=== PATIENT | female | born 1950 | race Caucasian/White ===

== ENCOUNTER 2020-07-02 08:37 | Outpatient (CLI) | payer MEDICARE, SELFPAY ==
--- NOTE | ~2020-07-02 | MM_ITS ---
EXAMINATION: MM screening [facility] BI w [facility] HISTORY: Screening TECHNIQUE: Craniocaudal and mediolateral oblique 3-D tomosynthesis images were obtained and synthetic 2-D images were generated. CAD analysis was submitted and interpreted. COMPARISON: Comparison to multiple prior studies sequentially, with oldest reviewed study dated 09/22. BREAST PARENCHYMAL COMPOSITION: There are scattered areas of fibroglandular density. FINDINGS: There is no evidence of suspicious mass, calcification, or architectural distortion to sugg est malignancy in either breast. There has been no suspicious interval change. IMPRESSION: 1. No mammographic evidence of malignancy. 2. Recommend routine screening mammography in one year. BI-RADS Category 1: Negative Reviewed, dictated and finalized at location A.
== END 2020-07-02 08:38 | disposition home or self-care (01) ==
LOC: ANHIMG 08:40
PROVIDERS: PCP Internal Medicine; Visit Provider Internal Medicine
DX: Z12.31 Encounter for screening mammogram for malignant neoplasm of breast (principal)
CPT/HCPCS: 77063; 77067

== ENCOUNTER 2021-12-03 19:02 | Emergency (ER) | payer MEDICARE, SELFPAY ==
[2021-12-03 19:43] VITALS: BP 171/94; PULSE 73; RESP 18; TEMP 36.7; O2SAT 100
--- NOTE | 2021-12-03 20:06 | ED.GENADULT ---
HPI - General Adult General Chief complaint: Nausea/Vomiting/Diarrhea Stated complaint: vomiting Time Seen by Provider: 12/03/21 19:51 History of Present Illness HPI narrative: 71-year-old female presented to the emergency department for evaluation of nausea vomiting and diarrhea. Patient states that she was due to COVID. Patient's was symptomatic for COVID on Tuesday and tested positive this past Tuesday. Patient states that he is now improved. Patient also began having some symptoms on Tuesday involving excessive tiredness. Patient's over the course of the day she has been unable to keep anything down due to persistent nausea and vomiting. Patient denies any any chest pain or shortness of breath. Patient denies any associate abdominal pain or pain with urination. Patient has a prior history of hypertension, rheumatoid with redness, esophageal reflux disease and hypothyroidism. Patient did receive the COVID-vaccine and booster. Related Data Home Medications Medication Instructions Recorded Confirmed aspirin 81 mg tablet,delayed 81 mg PO DAILY 03/19/19 06/30/21 release (Adult Low Dose Aspirin) cholecalciferol (vitamin D3) 100 4,000 unit PO DAILY 03/19/19 06/30/21 mcg (4,000 unit) capsule (Vitamin D3) calcium carbonate 500 mg calcium 500 mg PO DAILY 03/20/19 06/30/21 (1,250 mg) tablet magnesium 200 mg tablet 200 mg PO DAILY 03/20/19 06/30/21 Purevision PO 01/16/21 06/30/21 nutritional supplement-fiber oral ea PO 01/16/21 06/30/21 liquid Allergies Allergy/AdvReac Type Severity Reaction Status Date / Time shellfish derived Allergy Severe Swelling Verified 06/30/21 14:58 of Lip/Tongue/Throat Sulfa (Sulfonamide Allergy Mild Rash Verified 06/30/21 14:58 Antibiotics) Review of Systems Review of Systems: CONSTITUTIONAL: Denies fever, chills, or sweats. EYES: Denies visual changes, redness, or discharge. ENT: Denies rhinorrhea, congestion, sore throat, or otalgia. CARDIOVASCULAR: Denies chest pain, palpitations, or edema. RESPIRATORY: Denies cough or dyspnea. GASTROINTESTINAL: See HPI GENITOURINARY: Denies dysuria or hematuria. SKIN: Denies rash or itching. MUSCULOSKELETAL: Denies back pain, joint pain, or myalgia. NEUROLOGIC: Does report headache but denies any associated numbness or weakness PMFSH Social History Social History Second hand tobacco smoke exposure: No Alcohol intake: current Exam Narrative: APPEARANCE: Well appearing, no pain, no distress, well-nourished. HEAD: normocephalic, atraumatic. EYES: PERRLA/EOMI, conjunctivae clear. NOSE: Normal no drainage THROAT: Pharynx clear, no exudate. NECK: Supple. No adenopathy, no masses. RESPIRATORY: Airway patent, respirations nonlabored. Clear to auscultation bilaterally, no rales, rhonchi, wheezing. CARDIOVASCULAR: Regular rate and rhythm without murmurs rubs or gallops. ABDOMINAL: Soft, nontender, nondistended, normal bowel sounds MUSCULOSKELETAL: Moves all extremities. Strength/ROM intact, No edema, No calf tenderness. NEURO: Alert. Cranial nerves II through XII intact. Grossly intact SKIN: Warm, dry. Normal Color Course Course Emergency Course: Patient did feel improved with treatment. Patient was updated on the positive results of her COVID test. Patient's CMP is within normal limits. Patient was tolerating p.o. Patient was provided Zofran for home and encouraged of close follow-up with her primary care physician. Vital Signs Vital signs: Vital Signs Temperature 98.1 F 12/03/21 19:43 Pulse Rate 73 12/03/21 19:43 Respiratory Rate 18 12/03/21 19:43 Blood Pressure 171/94 H 12/03/21 19:43 Pulse Oximetry 100 12/03/21 19:43 Oxygen Delivery Room Air 12/03/21 19:43 Temperature 98.1 F 12/03/21 19:43 Pulse Rate 67 12/03/21 21:50 Respiratory Rate 18 12/03/21 21:50 Blood Pressure 130/80 12/03/21 21:50 Pulse Oximetry 98 1
[2021-12-03] MEDS: ONDANSETRON INJ 4 MG/2 ML VIAL IV PUSH (20:23)
[2021-12-03] MEDS: SODIUM CHLORIDE 0.9% IV 1,000 ML 999 ML IV CONT (20:23)
[2021-12-03] MEDS: KETOROLAC 15 MG/ML VIAL (*BKC) IV PUSH (20:23)
[2021-12-03 20:36] LABS: Basophils Percent Auto 0.7 % (0.2-1.2); Eosinophils Percent Auto 0.2 % (0-4.4); Hematocrit 41.7 % (37.0-47.0); Hemoglobin 14.3 g/dL (12.0-15.0); Immature Granulocyte Absolute 0.02 K/mm3 (0.00-0.031); Immature Granulocyte Percent A 0.4 % (0-0.5); Lymphocytes Absolute Auto 0.89 K/mm3 (0.9-3.2); Lymphocytes Percent Auto 19.9 % (18.3-44.2); Mean Corpuscular HGB Conc 34.3 g/dl (32-36); Mean Corpuscular Hemoglobin 31.4 pg (26-34); Mean Corpuscular Volume 91.4 fl (80-100); Monocytes Absolute Auto 0.6 K/mm3 (0.1-0.6); Monocytes Percent Auto 13.6 % (2.6-8.5); Neutrophils Absolute Auto 2.9 K/mm3 (1.3-6.7); Neutrophils Percent Auto 65.2 % (45.5-73.1); Platelet Count Result 170 k/mm3 (150-375); Red Blood Count 4.56 M/mm3 (4.2-5.4); Red Cell Distribution Width 13.9 % (11.5-14.5); White Blood Count 4.5 K/mm3 (4.5-10.0)
[2021-12-03 20:37] LABS: Appearance Urine Clear (Clear); Bilirubin Urine Negative (Negative); Blood Urine Trace-intact (Negative); Color Urine Yellow (Yellow); Glucose Urine UA Negative (Negative); Ketones Urine 3+ mg/dL (Negative); Leukocyte Esterase Ur Negative LEU/UL (Negative); Nitrate Urine Negative (Negative); Protein Urine Trace mg/dL (Negative); Specific Grav Ur 1.025 (1.001-1.035); Urobilinogen Urine 0.2 mg/dL (<2.0)
[2021-12-03 20:42] LABS: Mucus Urine Rare /lpf; RBC Urine 0-2 /hpf (0-2); Squamous Epithelial Cell Urine Rare /hpf (Few); WBC Urine 0-3 /hpf
[2021-12-03 20:44] LABS: Add Urine Microscopic? YES
[2021-12-03 20:50] LABS: Alanine Aminotransferase 27 U/L (6-35); Albumin Level 4.3 g/dL (3.5-5.1); Alkaline Phosphatase 74 U/L (38-126); Anion Gap 8 mmol/L (8-16); Aspartate Amino Transferase 25 U/L (14-36); Bilirubin,Total 0.5 mg/dL (0.2-1.3); Blood Urea Nitrogen 12 mg/dL (7-17); Calcium 9.2 mg/dL (8.4-10.2); Carbon Dioxide 25 mmol/L (22-30); Chloride 98 mmol/L (98-107); Estimated CRCL calculation 58 ml/min; Estimated Glomerular Filt Rate > 60; Glucose 127 mg/dL (65-110); Lipase 70 U/L (23-300); Potassium 3.9 mmol/L (3.4-5.0); Sodium 131 mmol/L (137-145)
[2021-12-03 21:01] VITALS: BP 153/98; PULSE 69; RESP 15; O2SAT 99
[2021-12-03 21:12] LABS: SARS-CoV-2 RNA PCR Positive
[2021-12-03 21:30] VITALS: PULSE 79; RESP 14; O2SAT 99
[2021-12-03 21:50] VITALS: BP 130/80; PULSE 67; RESP 18; O2SAT 98
== END 2021-12-03 22:05 | disposition home or self-care (01) ==
PROVIDERS: Emergency Provider Emergency Medicine; PCP Internal Medicine
DX: U07.1 COVID-19 (principal); R11.2 Nausea with vomiting, unspecified; I10 Essential (primary) hypertension; K21.9 Gastro-esophageal reflux disease without esophagitis; E03.9 Hypothyroidism, unspecified; Z79.82 Long term (current) use of aspirin
CPT/HCPCS: 36415; 80053; 81001; 83605; 83690; 85025; 96361; 96374; 99284; C9803; J1885; J2405; J7030; U0003; U0005

== ENCOUNTER 2022-05-11 08:01 | Emergency (ER) | payer MEDICARE, SELFPAY ==
[2022-05-11 08:17] VITALS: BP 189/100; PULSE 90; RESP 18; TEMP 36.8; O2SAT 99
[2022-05-11 08:49] VITALS: BP 173/100; PULSE 57; RESP 16; O2SAT 100
--- NOTE | 2022-05-11 08:52 | PC.NURSE ---
Pt reports hx of HTN. Has been monitoring BP at home and readings have also been high. Reports taking 20 mg of lisinopril every morning, did not take this morning.
[2022-05-11 08:55] LABS: Bacteria Urine Rare /hpf; RBC Urine >100 /hpf (0-2); Squamous Epithelial Cell Urine None seen /hpf (Few); WBC Urine >100 /hpf
[2022-05-11 09:12] LABS: Appearance Urine Turbid (Clear); Color Urine Red (Yellow)
[2022-05-11 09:13] LABS: Protein Urine 2+ mg/dL (Negative); pH Urine 7.5 (5.0-9.0)
[2022-05-11 09:14] LABS: Bilirubin Urine 1+ (Negative); Blood Urine 3+ (Negative); Glucose Urine UA Negative (Negative); Ketones Urine Negative (Negative); Leukocyte Esterase Ur 3+ LEU/UL (Negative); Nitrate Urine Positive (Negative); Urobilinogen Urine 0.2 mg/dL (<2.0)
[2022-05-11 09:17] LABS: Add Urine Microscopic? YES
--- NOTE | 2022-05-11 09:36 | ED.FEMALEGU ---
HPI - Female Genitourinary General Chief complaint: Urogenital-Female Stated complaint: UTI Time Seen by Provider: 05/11/22 09:09 Source: patient Mode of arrival: ambulatory Limitations: no limitations History of Present Illness HPI Narrative: This is a 72-year-old female that presents to the emergency department for dysuria ongoing since this morning. Reports she was treated for UTI about 10 days ago with Macrobid. She finished her course of antibiotics as directed. Now couple of days later her symptoms have returned. Reports dysuria, frequency, and hematuria. Denies fever, abdominal pain, flank pain, or vomiting. Related Data Home Medications Medication Instructions Recorded Confirmed aspirin 81 mg tablet,delayed 81 mg PO DAILY 03/19/19 01/26/22 release (Adult Low Dose Aspirin) cholecalciferol (vitamin D3) 100 4,000 unit PO DAILY 03/19/19 01/26/22 mcg (4,000 unit) capsule (Vitamin D3) calcium carbonate 500 mg calcium 500 mg PO DAILY 03/20/19 01/26/22 (1,250 mg) tablet magnesium 200 mg tablet 200 mg PO DAILY 03/20/19 01/26/22 Purevision PO 01/16/21 01/26/22 nutritional supplement-fiber oral ea PO 01/16/21 01/26/22 liquid Allergies Allergy/AdvReac Type Severity Reaction Status Date / Time shellfish derived Allergy Severe Swelling Verified 05/11/22 08:46 of Lip/Tongue/Throat Sulfa (Sulfonamide Allergy Mild Rash Verified 05/11/22 08:46 Antibiotics) Review of Systems Review of Systems: CONSTITUTIONAL: Denies fever GASTROINTESTINAL: Denies abdominal pain, nausea, vomiting GENITOURINARY: Reports dysuria and hematuria. All systems reviewed & are unremarkable except as noted in HPI and below [facility] Past Medical History Medical History (Updated 05/11/22 @ 10:35 by Lucy Connolly PA-C) COVID Esophageal reflux disease Essential hypertension Hypothyroidism Social History Social History Smoking status: Never smoker Second hand tobacco smoke exposure: No Alcohol intake: current Lack of Transportation: No Lack of Food: Never True Current Housing: I Have Housing Concerned About Future Housing: No Difficulty Paying Gas/Electric Bills: No Difficulty Paying for Meds: No Currently Unemployed: No Difficulty w/ Childcare or Family Care: No Exam Narrative: GENERAL: Well-appearing, well-nourished, and in no acute distress. HEAD: Normocephalic, atraumatic. EYES: EOMI. CHEST: Clear to auscultation. No respiratory distress. No wheezes rales or rhonchi HEART: Regular rate and rhythm. No murmur heard. Normal peripheral pulses. ABDOMEN: Soft, nontender, nondistended, normal active bowel sounds. No CVA tenderness EXTREMITIES: Normal range of motion. No edema. SKIN: Warm, dry, no rash. NEURO: No focal deficits. Alert and oriented x3. PSYCH: Normal mood and affect Course Course Emergency Course: Patient and family updated on workup and agree with plan of care Vital Signs Vital signs: Vital Signs Temperature 98.2 F 05/11/22 08:17 Pulse Rate 90 05/11/22 08:17 Respiratory Rate 18 05/11/22 08:17 Blood Pressure 189/100 H 05/11/22 08:17 Pulse Oximetry 99 05/11/22 08:17 Oxygen Delivery Room Air 05/11/22 08:17 Temperature 98.2 F 05/11/22 08:17 Pulse Rate 57 L 05/11/22 08:49 Respiratory Rate 16 05/11/22 08:49 Blood Pressure 173/100 H 05/11/22 08:49 Pulse Oximetry 100 05/11/22 08:49 Oxygen Delivery Room Air 05/11/22 08:17 MDM - Female Genitourinary MDM Narrative Medical decision making narrative: Patient presents to the emergency department for dysuria, hematuria, frequency. She is afebrile and nontoxic-appearing. She denies any abdominal pain or flank pain. No CVA tenderness on exam. CBC is without leukocytosis. Metabolic panel without concerning findings. UA is consistent with infection. This will be sent for culture. She was recently seen at [place] [facility]
[2022-05-11 10:15] LABS: Basophils Percent Auto 0.5 % (0.2-1.2); Eosinophils Absolute Auto 0.1 K/mm3 (0-0.3); Eosinophils Percent Auto 0.8 % (0-4.4); Hematocrit 41.8 % (37.0-47.0); Hemoglobin 14.2 g/dL (12.0-15.0); Immature Granulocyte Absolute 0.02 K/mm3 (0.00-0.031); Immature Granulocyte Percent A 0.3 % (0-0.5); Lymphocytes Absolute Auto 1.17 K/mm3 (0.9-3.2); Lymphocytes Percent Auto 14.6 % (18.3-44.2); Mean Corpuscular Hemoglobin 31.1 pg (26-34); Mean Corpuscular Volume 91.5 fl (80-100); Mean Platelet Volume 9.4 fl (7.4-10.4); Monocytes Absolute Auto 0.5 K/mm3 (0.1-0.6); Monocytes Percent Auto 6.8 % (2.6-8.5); Neutrophils Absolute Auto 6.2 K/mm3 (1.3-6.7); Platelet Count Result 159 k/mm3 (150-375); Red Blood Count 4.57 M/mm3 (4.2-5.4)
[2022-05-11 10:26] LABS: Anion Gap 4 mmol/L (8-16); Blood Urea Nitrogen 9 mg/dL (7-17); Carbon Dioxide 29 mmol/L (22-30); Chloride 98 mmol/L (98-107); Estimated CRCL calculation 82 ml/min; Estimated Glomerular Filt Rate > 60; Glucose 98 mg/dL (65-110); Potassium 4.3 mmol/L (3.4-5.0); Sodium 131 mmol/L (137-145)
[2022-05-11 10:59] VITALS: BP 146/94; PULSE 68; RESP 16; TEMP 36.8; O2SAT 98
== END 2022-05-11 11:05 | disposition home or self-care (01) ==
PROVIDERS: Emergency Medicine; Emergency Provider Physician Assistant; PCP Internal Medicine
DX: N30.01 Acute cystitis with hematuria (principal); E03.9 Hypothyroidism, unspecified; K21.9 Gastro-esophageal reflux disease without esophagitis; Z79.82 Long term (current) use of aspirin; Z86.16 Personal history of COVID-19
CPT/HCPCS: 36415; 80048; 81001; 85025; 87077; 87086; 87186; 99283

== ENCOUNTER 2022-07-23 09:16 | Outpatient (CLI) | payer MEDICARE, SELFPAY ==
[2022-07-23 10:15] LABS: Appearance Urine Clear (Clear); Bacteria Urine None Seen /hpf; Bilirubin Urine Negative (Negative); Blood Urine 1+ (Negative); Color Urine Yellow (Yellow); Glucose Urine UA Negative (Negative); Ketones Urine Negative (Negative); Leukocyte Esterase Ur 1+ LEU/UL (Negative); Nitrate Urine Negative (Negative); Non Pathogenic Casts 0-2; Protein Urine Negative (Negative); RBC Urine 21-50 /hpf (0-2); Specific Grav Ur 1.008 (1.001-1.035); Squamous Epithelial Cell Urine None seen /hpf (Few); Urobilinogen Urine 0.2 mg/dL (<2.0); WBC Urine 21-50 /hpf
[2022-07-23 10:17] LABS: Add Urine Microscopic? YES
== END 2022-07-23 09:17 | disposition home or self-care (01) ==
PROVIDERS: PCP Internal Medicine; Visit Provider Internal Medicine
DX: R30.0 Dysuria (principal)
CPT/HCPCS: 81001; 87077; 87086; 87186